=== PATIENT | female | born 1975 | race Caucasian/White ===

== ENCOUNTER 2017-12-13 12:20 | Inpatient (IN) | payer BC ==
[~2017-12-13] VITALS: Ht 172.7 cm; Wt 109.0 kg
[2017-12-13] VITALS (17 sets, daily range): BP systolic 136–176; BP diastolic 77–109
[2017-12-13] MEDS ORDERED: magnesium 4gm in 100ml NS 100 ML IV PRN (15:05)
[2017-12-13] MEDS ORDERED: acetaminophen 325mg tablet PO PRN (15:05)
[2017-12-13] MEDS ORDERED: magnesium hydroxide 30ml (MOM) UD suspension PO PRN (15:05)
[2017-12-13] MEDS ORDERED: magnesium Cl slow-release 64mg tablet PO PRN (15:05)
[2017-12-13] MEDS ORDERED: potassium Cl 20 mEq SR tablet PO PRN ×2 (15:05)
[2017-12-13] MEDS ORDERED: potassium Cl 40MEQ/NS 500ml 500 ML IV PRN ×2 (15:05)
[2017-12-13] MEDS ORDERED: mag hydrox/Alum hydrox/simeth 30ml oral suspension PO PRN (15:05)
[2017-12-13] MEDS ORDERED: magnesium 1gm/100ml D5W IVPB 100 ML IV PRN (15:05)
[2017-12-13] MEDS ORDERED: ondansetron/PF 4mg/2ml inj IV PRN ×2 (15:05→16:30)
[2017-12-13] MEDS ORDERED: morphine 2 MG/ML inj. syringe IV PRN (15:05)
[2017-12-13] MEDS ORDERED: iohexol 300 MG/1 ML 50ml polymer ONE (16:07)
[2017-12-13] MEDS: normal saline 1000ml 1,000 ML IV SCH ×2 (16:13→23:03)
[2017-12-13] MEDS ORDERED: ringers solution, lacted 1,000 ML IV SCH (16:28)
[2017-12-13] MEDS ORDERED: fentaNYL/PF 50MCG/1 ML 2ML syringe IV PRN ×2 (16:30)
[2017-12-13] MEDS ORDERED: morphine 4 MG/ML inj SYRINge IV PRN ×2 (16:30)
[2017-12-13] MEDS ORDERED: hydrALAZINE 20mg/ml inj. IV PRN (16:30)
[2017-12-13] MEDS ORDERED: sevoflurane 250ml liquid IH ONE (16:33)
[2017-12-13 16:40] LABS: PARTIAL THROMBOPLASTIN TIME 27 SECONDS (22-32); PROTHROMBIN TIME 9.9 SECONDS (9.0-12.0)
[2017-12-13] MEDS ORDERED: fentaNYL/PF 50MCG/1 ML 2ML syringe ONE (16:47)
[2017-12-13] MEDS ORDERED: midazolam 2 mg/2 ml injection ONE (16:47)
[2017-12-13] MEDS ORDERED: LIDOcaine 2% (20mg/ml) 5ml vial ONE (16:48)
[2017-12-13] MEDS ORDERED: propofol inj 20 ML IV ONE (16:48)
[2017-12-13] MEDS ORDERED: ondansetron/PF 4mg/2ml inj ONE (16:48)
[2017-12-13] MEDS ORDERED: ceFAZolin 1000mg inj ONE (16:50)
[2017-12-13] MEDS: labetalol 20mg/4ml (5mg/ml) syringe IV PRN ×2 (17:33→17:51)
[2017-12-13] MEDS: morphine 2 MG/ML inj. syringe IV PRN (23:01)
[2017-12-14] MEDS: morphine 2 MG/ML inj. syringe IV PRN (05:00)
[2017-12-14] MEDS: normal saline 1000ml 1,000 ML IV SCH ×2 (05:03→14:01)
[2017-12-14 07:14] VITALS: BP 158/89
[2017-12-14] MEDS ORDERED: K and/or MAG REPLACEMENT MC SCH (08:00)
[2017-12-14 10:58] LABS: ANION GAP 8 (8-16); BLOOD UREA NITROGEN 6 MG/DL (7-18); BUN/CREATININE RATIO 10.7 (6.6-38.0); CALCIUM 8.5 MG/DL (8.5-10.1); CHLORIDE 104 MMOL/L (99-107); CREATININE 0.56 MG/DL (0.40-0.90); GLUCOSE 107 MG/DL (70-104); POTASSIUM 3.5 MMOL/L (3.5-5.1); SODIUM 142 MMOL/L (135-145); TOTAL CARBON DIOXIDE 29.8 MMOL/L (24-32); eGFR > 90 ML/MIN
[2017-12-14] MEDS ORDERED: LABE100T5 PO (11:22)
[2017-12-14] MEDS ORDERED: HYDR25TA4 PO (11:22)
[2017-12-14 11:27] LABS: BASOPHILS % (AUTO) 0.4 % (0-1); EOSINOPHILS # (AUTO) 0.1 X10'3 (0-0.9); EOSINOPHILS % (AUTO) 0.6 % (0-6); HEMATOCRIT 33.3 % (35.0-45.0); HEMOGLOBIN 11.9 g/dl (12.0-16.0); LYMPHOCYTES # (AUTO) 2.5 X10'3 (1.1-4.8); LYMPHOCYTES % (AUTO) 21.4 % (21-51); MEAN CORPUSCULAR HEMOGLOBIN 30.5 PG (27.0-31.0); MEAN CORPUSCULAR HGB CONC 35.7 % (33.0-36.5); MEAN CORPUSCULAR VOLUME 85.3 FL (78-98); MEAN PLATELET VOLUME 7.9 FL (7.4-10.4); MONOCYTES # (AUTO) 0.9 X10'3 (0-0.9); NEUTROPHILS # (AUTO) 8.2 X10'3 (1.8-7.7); NEUTROPHILS % (AUTO) 69.6 % (42-75); PLATELET COUNT 316 X10'3 (140-440); RED CELL DISTRIBUTION WIDTH 12.8 % (11.5-14.5); WHITE BLOOD COUNT 11.7 X10'3 (4.5-11.0)
[2017-12-14 12:00] VITALS: BP 166/89
[2017-12-14] MEDS ORDERED: CIPR-230 PO (12:46)
== END 2017-12-14 16:06 | disposition home or self-care (01) | DRG 661 ==
LOC: SUR 3N 14:24
PROVIDERS: ADMIT Hospitalist; ATTEND Internal Medicine
PROC: 0T768DZ Dilation of Right Ureter with Intraluminal Device, Via Natural or Artificial Opening Endoscopic (ICD-10-PCS; 2017-12-13)
PROC: BT161ZZ Fluoroscopy of Right Ureter using Low Osmolar Contrast (ICD-10-PCS; 2017-12-13)
PROC: 0TC68ZZ Extirpation of Matter from Right Ureter, Via Natural or Artificial Opening Endoscopic (ICD-10-PCS; principal; 2017-12-13 16:33)
DX: N20.1 Calculus of ureter (principal); E78.00 Pure hypercholesterolemia, unspecified; I10 Essential (primary) hypertension; E66.9 Obesity, unspecified; F32.9 Major depressive disorder, single episode, unspecified; F41.9 Anxiety disorder, unspecified; G43.909 Migraine, unspecified, not intractable, without status migrainosus; Z68.36 Body mass index [BMI] 36.0-36.9, adult; Z79.899 Other long term (current) drug therapy; Z91.018 Allergy to other foods
CPT/HCPCS: 36415; 76000; 80048; 85025; 85610; 85730; 87070; A4402; C1769; C2617; J0360; J0690; J2001; J2250; J2270; J2405; J2704; J3010; J3490; J7030; J7120; Q9967